=== PATIENT | male | born 1945 | race Hispanic/Latino ===

== ENCOUNTER 2021-03-22 20:38 | Emergency (ER) | payer MEDICARE, MEDICAID ==
[~2021-03-22] VITALS: Ht 177.8 cm; Wt 106.1 kg
[~2021-03-22 20:38] MED LIST: ALLOPURINOL300 MG PO; ASPIRIN325 MG PO; ELIGARD SUB-Q; FERROUS SULFAT325 MG PO; GLIPIZIDE10 MG PO; HYDRALAZINE HCL25 MG PO; LASIX40 MG PO; LOVASTATIN20 MG PO; METOPROLOL TART50 MG PO; PERCOCET 5-3251 EACH PO; VITAMIN C1000 MG PO
--- NOTE | 2021-03-23 10:55 | EKG ---
[facility] [address] [facility] [place], [place] [address] Signed Normal sinus rhythm ST \T\ T wave abnormality, consider anterior ischemia Prolonged QT Abnormal ECG No previous ECGs available Confirmed by MARCO A REYES DO ([id number]) on 03/23/2021 10:55:29 AM Electronically Signed By: MARCO A REYES DO 03/23/21 1055 PATIENT NAME: NUHA HALL Electrocardiogram DATE OF : 49 PHYSICIAN: MARCO A REYES DO REPORT #: [id number] REPORT IS CONFIDENTIAL AND NOT TO BE RELEASED WITHOUT AUTHORIZATION
--- NOTE | 2021-03-23 10:56 | EKG ---
[facility] [address] [facility] [place] [address] Signed Sinus rhythm with occasional premature ventricular complexes and premature atrial complexes ST \T\ T wave abnormality, consider anterior ischemia Prolonged QT Abnormal ECG When compared with ECG of 22-MAR-2021 20:43, (Unconfirmed) premature ventricular complexes are now present premature atrial complexes are now present Confirmed by MARCO A REYES DO ([id number]) on 03/23/2021 10:55:47 AM Electronically Signed By: MARCO A REYES DO 03/23/21 1056 PATIENT NAME: NUHA HALL Electrocardiogram DATE OF : 49 PHYSICIAN: MARCO A REYES DO REPORT #: [id number] REPORT IS CONFIDENTIAL AND NOT TO BE RELEASED WITHOUT AUTHORIZATION
--- NOTE | 2021-03-23 10:56 | EKG ---
[facility] [address] [facility] [place] [address] Signed Sinus rhythm with premature supraventricular complexes Prolonged QT Abnormal ECG When compared with ECG of 23-MAR-2021 00:21, (Unconfirmed) premature ventricular complexes are no longer present ST no longer depressed in Anterior leads T wave inversion no longer evident in Anterior leads Confirmed by MARCO A REYES DO ([id number]) on 03/23/2021 10:56:00 AM Electronically Signed By: MARCO A REYES DO 03/23/21 1056 PATIENT NAME: TALON FRANCISCONUHA GAN Electrocardiogram DATE OF : 49 PHYSICIAN: MARCO A REYES DO REPORT #: [id number] REPORT IS CONFIDENTIAL AND NOT TO BE RELEASED WITHOUT AUTHORIZATION
== END 2021-03-23 05:19 | disposition short-term general hospital (02) ==
LOC: ED 20:38
DX: I24.9 Acute ischemic heart disease, unspecified (principal); Z20.822 Contact with and (suspected) exposure to COVID-19; I10 Essential (primary) hypertension; E11.9 Type 2 diabetes mellitus without complications; I25.10 Atherosclerotic heart disease of native coronary artery without angina pectoris; Z79.899 Other long term (current) drug therapy; Z79.82 Long term (current) use of aspirin
CPT/HCPCS: 71045; 71260; 80053; 83735; 84484; 85025; 85379; 93005; 93010; 99285-25; C9803; J1650; J2270; J2405; Q9967; U0003

== ENCOUNTER 2021-11-02 17:18 | Emergency (ER) | payer MEDICARE, MEDICAID ==
[~2021-11-02] VITALS: Ht 177.8 cm; Wt 97.5 kg
[2021-11-02] MEDS ORDERED: ONDANSETRON ODT8 MG PO (22:32)
[2021-11-02] MEDS ORDERED: DULCOLAX10 MG PR (22:37)
== END 2021-11-02 22:30 | disposition home or self-care (01) ==
LOC: ED 17:18
DX: K59.00 Constipation, unspecified (principal); E86.0 Dehydration; C61 Malignant neoplasm of prostate; I10 Essential (primary) hypertension; E11.9 Type 2 diabetes mellitus without complications; I25.10 Atherosclerotic heart disease of native coronary artery without angina pectoris; Z79.899 Other long term (current) drug therapy; Z79.82 Long term (current) use of aspirin
CPT/HCPCS: 74022; 80053; 81001; 85025; 96374; 99284-25; J2405; J7121